=== PATIENT | male | born 1985 | race African-American/Black ===

== ENCOUNTER 2017-01-08 19:49 | Inpatient (IN) | payer OTHER ==
[~2017-01-08] VITALS: Ht 177.8 cm; Wt 88.7 kg
[~2017-01-08 19:49] MED LIST: BENTYL10 MG PO; MOTRIN800 MG PO; NOHOMEMEDS; SEROQUEL100 MG PO
[2017-01-08 20:26] LABS: HEMATOCRIT 47.1 % (38.0-50.0); MCH 31.2 PG (29.0-34.0); MCHC 33.1 G/DL (30.0-36.0); MCV 94.2 FL (86-99); MEAN PLAT.VOLUME 10.1 uM^3 (9.0-12.4); PLATELET COUNT 273 K/uL (156-360); RBC DIS.WIDTH-CV 14.3 % (11.8-14.6); RBC DIS.WIDTH-SD 50.1 % (39-53); WHITE BLOOD COUNT 8.6 K/uL (4.1-10.2)
[2017-01-08 20:35] LABS: CHLORIDE 107 mEq/L (99-109); POTASSIUM 3.7 mEq/L (3.7-5.4); SODIUM 146 mEq/L (136-147)
[2017-01-08 20:37] LABS: GLUCOSE 77 mg/dL (70-99)
[2017-01-08 20:38] LABS: ANION GAP 27 MEQ/L (2-14)
[2017-01-08 20:40] LABS: GFR ESTIMATE (CALCULATED) > 59 mL/min/
[2017-01-08 20:41] LABS: UREA NITROGEN (BUN) 12 mg/dL (9-23)
[2017-01-08 21:11] LABS: BICARBONATE 21.5 mEq/L (22-26); CARBOXY HGB 6.1 % (0-5); METHEMOGLOBIN 1.4 % (0-1.5); PCO2 59 mm Hg (35-45); PO2 253 mm Hg (80-100)
[2017-01-08 21:12] LABS: COMMENTS - BLOOD GASES A+C+; DEVICE VENT; FI02 100 %; MECHANICAL RATE 18 resp/min; MODE AC; PEEP 5 CM/H20; SITE RR; TIDAL VOLUME 400 ML; TOTAL RESP RATE 26 resp/min; pH 7.17 (7.35-7.45)
[2017-01-08 22:33] LABS: ADD MEDTOX COMMENT Y; AMPHETAMINE NEGATIVE (500 ng/mL); BARBITURATES NEGATIVE (200 ng/mL); BENZODIAZEPINES NEGATIVE (150 ng/mL); COCAINE PRESUMPTIVE POSITIVE (150 ng/mL); INTERNAL CONTROLS VALID? YES; METHADONE NEGATIVE (200 ng/mL); METHAMPHETAMINE NEGATIVE (500 ng/mL); OPIATES (MORPHINE) NEGATIVE (100 ng/mL); OXYCODONE NEGATIVE (100 ng/mL); PHENCYCLIDINE PRESUMPTIVE POSITIVE (25 ng/mL); PROPOXYPHENE NEGATIVE (300 ng/mL); THC CANNABINOIDS PRESUMPTIVE POSITIVE (50 ng/mL); TRICYCLIC ANTIDEPRESSANTS NEGATIVE (300 ng/mL)
[2017-01-08 23:15] VITALS: BP 140/84
[2017-01-08 23:30] VITALS: BP 128/84
[2017-01-08 23:45] VITALS: BP 126/72
[2017-01-09] VITALS: BP 122/69
[2017-01-09 00:30] VITALS: BP 118/79
[2017-01-09 01:00] VITALS: BP 143/96
[2017-01-09 02:00] VITALS: BP 136/80
[2017-01-09 02:07] LABS: METH RESISTANT S AUREUS PCR NEGATIVE (NEGATIVE)
[2017-01-09 02:08] LABS: PROBE CHECK PASS; SPECIMEN PROCESSING CONTROL PASS
[2017-01-09 03:00] VITALS: BP 134/87
== END 2017-01-09 04:47 | disposition left against medical advice (07) | DRG 917 ==
LOC: EME → EDBD 19:49 → EDOF 21:03 → 4WEST 23:03
PROVIDERS: Emergency Medicine; Psychiatry & Neurology Neurology
DX: T40.991A Poisoning by other psychodysleptics [hallucinogens], accidental (unintentional), initial encounter (principal); T40.5X1A Poisoning by cocaine, accidental (unintentional), initial encounter; J96.01 Acute respiratory failure with hypoxia; T40.7X1A Poisoning by cannabis (derivatives), accidental (unintentional), initial encounter; R40.20 Unspecified coma; Y92.89 Other specified places as the place of occurrence of the external cause; E87.2 Acidosis; J98.11 Atelectasis; F14.129 Cocaine abuse with intoxication, unspecified; F16.129 Hallucinogen abuse with intoxication, unspecified; F12.129 Cannabis abuse with intoxication, unspecified
CPT/HCPCS: 31500; 36600; 71010; 80048; 82803; 83605; 84999; 85027; 87040; 87641; 93005; 94002; 99281; 99285; J1630; J2250; J2543; J2704; J7030; J7050

== ENCOUNTER 2017-01-10 20:48 | Emergency (ER) | payer OTHER ==
[~2017-01-10] VITALS: Ht 193 cm; Wt 93.4 kg
[2017-01-10 21:54] VITALS: BP 141/97
== END 2017-01-10 21:55 | disposition home or self-care (01) ==
LOC: EXP 20:48 → EME 20:48 → EXP 21:55
DX: R05 Cough (principal); R04.2 Hemoptysis; F17.200 Nicotine dependence, unspecified, uncomplicated; F19.10 Other psychoactive substance abuse, uncomplicated
CPT/HCPCS: 71020; 99281; 99282